=== PATIENT | male | born 1995 | race Caucasian/White ===

== ENCOUNTER 2016-09-23 14:21 | Emergency (ER) | payer OTHER ==
[~2016-09-23] VITALS: Ht 188 cm; Wt 82.1 kg
[~2016-09-23 14:21] MED LIST: CLR10
[2016-09-23 14:28] VITALS: TEMP 36.7; Ht 188 cm; Wt 82.1 kg
[2016-09-23] MEDS ORDERED: XYLOCAINE 1%/SOD BICARB 20 ML VIAL INFIL ONE (14:45)
[2016-09-23] MEDS ORDERED: CEPH500C PO (15:31)
[2016-09-23 15:38] VITALS: BP 120/63; PULSE 51; O2SAT 99
--- NOTE | 2016-09-23 18:11 | EMERGENCY ROOM VISIT NOTE ---
ED Visit Note First contact with patient: 14:34 CHIEF COMPLAINT: Finger laceration HISTORY OF PRESENT ILLNESS: This 21-year-old male patient presents to the emergency department after cutting the left first finger about 2 hours ago. The patient was using a pocket knife to cut a small sapling when he suffered his injury. The bleeding has stopped. Denies weakness or numbness of the finger. The patient has full range of motion of the fingers. The patient rates the pain as dull and 8/10. The patient denies any other injuries. The patient' s tetanus shot is reportedly up to date. REVIEW OF SYSTEMS: A 6 system review of systems was completed with positives and pertinent negatives listed in the HPI. ALLERGIES: No allergies MEDICATIONS: No chronic medications PMH: Otherwise healthy SOCIAL HISTORY: Lives with family PHYSICAL EXAM: Vital Signs: Reviewed Nurse's notes, vital signs stable. GENERAL : White male, in no acute distress, well developed, well nourished. SKIN: There is a 2.5 cm long laceration on the dorsal proximal aspect of the left first finger. The edges gape apart with traction. There is no foreign material in the wound and it looks clean. There is no significant bleeding. There appears to be a small laceration to the medial aspect of the extensor tendon. No bony injury or foreign body. Extension and flexion of the finger is full and strong. Full range of motion of the wrist and other fingers. Capillary refill less than 2 seconds. Normal sensation to light and sharp touch. EMERGENCY DEPARTMENT COURSE: I examined the patient. Verbal consent was obtained to perform the procedure. Using sterile technique the wound was cleansed with Betadine. 3 ml of 1% buffered lidocaine was used to perform a digital block to anesthetize the patient. The area was sterilely draped. Once the patient was anesthetized, the wound was copiously irrigated under pressure with sterile saline. The wound was explored and there were no deep structures injured. The laceration was repaired using 3 simple interrupted 5-0 nylon sutures. The patient tolerated the procedure well. Hemostasis was achieved. The area was cleaned with sterile saline and dressed with bacitracin ointment and bandage. The patient was placed in a metal splints and will need to follow with orthopedics as he does have a small laceration of his extensor tendon. He was given a prescription for Keflex. Current/Historical Medications Scheduled Cephalexin Monohydrate (Keflex), 500 MG PO TID Allergies Coded Allergies: No Known Allergies (Unverified , 09/23/16) Vital Signs Date Time Temp Pulse Resp B/P Pulse Ox O2 Delivery O2 Flow Rate FiO2 09/23/16 15:38 51 18 120/63 99 Room Air 09/23/16 14:28 36.7 81 18 118/73 97 Room Air Departure Information Impression Primary Impression: Laceration of left thumb Dispostion Home / Self-Care Condition GOOD Prescriptions Cephalexin Monohydrate (Keflex) 500 Mg Cap 500 MG PO TID for 7 Days, #21 CAP Prov: Dedrick Escamilla PA-C 09/23/16 Referrals Emilio Zamarripa MD Forms HOME CARE DOCUMENTATION FORM, IMPORTANT VISIT INFORMATION Patient Instructions My [facility] Additional Instructions You were seen and evaluated today on an emergency basis only. This is not a substitute for, or an effort to provide, complete comprehensive medical care. It is not possible to recognize and treat all injuries or illnesses in a single emergency department visit. For this reason it is recommended that you followup with you were seen orthopedics, Dr. Zamarripa's office, by telephone tomorrow to arrange a follow- up appointment. It appears that you have a very small laceration to the extensor tendon of the left thumb. Cephalexin(Keflex) 500mg: Take one pill 3 times daily for 7 days for your skin infection. All antibiotics can cause diarrhea. If this occurs and you feel worse or it does not resolve in 1-2 days follow up with your doctor or return to the Emergency Department as this could be signs of serious underlying problems. Any medication can cause an allergic reaction, stop the pills immediately and return to the ER for rash, hives, breathing difficulties, or swelling. Keep wound clean and dry. Do not allow any crusting or dried blood to accumulate on sutures. If this occurs, use a mild soap/water on a Q-tip to clean the wound. Do not use Peroxide to clean the wound as this can delay healing Use an antibiotic ointment like Bacitracin for 3-4 days, then let wound dry. You may bathe and shower as normal, but DO NOT SOAK the wound. Suture removal in about 8-10 days with your Family Doctor or in the ER. Return sooner for any signs of infection, increasing redness, swelling, or drainage. You are welcome to return to the emergency department anytime with new, worsening, or concerning symptoms.
== END 2016-09-23 15:43 | disposition home or self-care (01) ==
LOC: C.EDB 14:23 → C.EDD 15:43
DX: S61.211A Laceration without foreign body of left index finger without damage to nail, initial encounter (principal); W26.0XXA Contact with knife, initial encounter